=== PATIENT | male | born 1970 | race Caucasian/White ===

== ENCOUNTER → 2022-11-14 | Outpatient (REF) | payer MEDICARE | LOC: M WUC 20:32 | PROVIDERS: ATTEND Student in an Organized Health Care Education/Training Program | DX: R21 Rash and other nonspecific skin eruption (principal) ==

== ENCOUNTER → 2024-03-06 | Outpatient (CLI) | payer MEDICARE, MEDICAID | LOC: M OUTALCOH 08:02 | PROVIDERS: ATTEND Psychiatry & Neurology Psychiatry | DX: F15.20 Other stimulant dependence, uncomplicated (principal); F11.20 Opioid dependence, uncomplicated ==

== ENCOUNTER 2025-08-06 13:30 | Emergency (ER) | payer MEDICARE ==
[~2025-08-06] VITALS: Ht 182.9 cm; Wt 118.6 kg
[~2025-08-06 13:30] MED LIST: ALBU8.5H; BUPR-766 PO; BUPR128S; BUSP10TA PO; CARV3.12 PO; CELE1CAP99 PO; CLON-412 PO; CLOP75TA2 PO; DESV100T3 PO; ECOT81TA5 PO; MIRT1TAB PO; PANT40TA29 PO; RELU120T PO; ROSU20TA86 PO; TAMS1CAP17 PO
[2025-08-06 15:55] LABS: BASO # 0.0 10^3/uL (0.0-0.2); BASO % 0.5 % (0.0-1.0); EOS # 0.4 10^3/uL (0.0-0.5); EOS % 6.8 % (0.0-3.0); LYMPH # 2.1 10^3/uL (1.5-5.0); LYMPH % 35.0 % (24.0-44.0); MONO # 0.7 10^3/uL (0.0-0.8); MONO % 12.6 % (2.0-8.0); NEUTROPHILS # 2.6 10^3/uL (1.5-8.5); NEUTROPHILS % 44.9 % (36.0-66.0); PLATELET COUNT, AUTOMATED 221 10^3/uL (150-450)
[2025-08-06 16:31] LABS: ALT/SGPT 40 U/L (7.0-40); AST/SGOT 71 U/L (<34); CALCIUM LEVEL 8.8 MG/DL (8.5-10.1); CARBON DIOXIDE LEVEL 29 MMOL/L (20-31); CHLORIDE LEVEL 104 MMOL/L (98-107); CREATININE FOR GFR 0.85 MG/DL (0.70-1.30); GLOMERULAR FILTRATION RATE > 90.0 (>56); POTASSIUM SERUM 4.1 MMOL/L (3.5-5.1); SODIUM LEVEL 143 MMOL/L (136-145)
[2025-08-06 16:38] LABS: INR 0.96
[2025-08-06 17:23] LABS: CK-MB VALUE MASS 5.9 NG/ML (<3.6)
[2025-08-06 17:27] LABS: FREE T4 0.97 NG/DL (0.89-1.76)
[2025-08-06 17:40] LABS: CPK CREATINE PHOSPHOKINASE 1786 U/L (46-171); MB/CK RELATIVE INDEX 0.33 (< OR =4)
[2025-08-06 17:48] LABS: CK-MB VALUE MASS 5.8 NG/ML (<3.6)
[2025-08-06 18:13] LABS: CPK CREATINE PHOSPHOKINASE 1754.0 U/L (46-171); MB/CK RELATIVE INDEX 0.33 (< OR =4)
[2025-08-06] MEDS: NICOTINE 21 MG/24 HR 1 EA TRANSDERMAL TD ONE (18:34)
[2025-08-06 21:24] LABS: CK-MB VALUE MASS 4.9 NG/ML (<3.6)
[2025-08-06 21:53] LABS: CPK CREATINE PHOSPHOKINASE 1517.0 U/L (46-171); MB/CK RELATIVE INDEX 0.32 (< OR =4)
[2025-08-06] MEDS: ACETAMINOPHEN 500 MG TAB PO ONE (23:51)
[2025-08-07 00:16] VITALS: BP 107/59; TEMP 96; O2SAT 94
== END 2025-08-07 00:41 | disposition home or self-care (01) ==
LOC: M ED 13:30
DX: R22.31 Localized swelling, mass and lump, right upper limb (principal); M17.11 Unilateral primary osteoarthritis, right knee; I10 Essential (primary) hypertension; G47.30 Sleep apnea, unspecified; K59.00 Constipation, unspecified; E78.5 Hyperlipidemia, unspecified; Z79.82 Long term (current) use of aspirin; Z79.899 Other long term (current) drug therapy